=== PATIENT | male | born 2005 | race Caucasian/White ===

== ENCOUNTER 2023-07-24 11:27 | Inpatient (IN) | payer OTHER ==
[~2023-07-24 11:27] MED LIST: Iopamidol-370 76% 500 ML MDV (1 ML CHARGE) ONE
[2023-07-24] MEDS ORDERED: Ketorolac Tromethamine 30 MG/ML VIAL ONE ×2 (12:26→18:35)
[2023-07-24 12:50] LABS: #Basophils 0.1 thou/uL (0.0-0.2); #Eosinphils 0.2 thou/uL (0.0-0.7); #Monocytes 1.4 thou/uL (0.11-0.59); #Neutrophils 10.4 thou/uL (1.40-6.50); %Basophils 0.4 % (0.0-1.0); %Eosinophils 1.4 % (0.0-10.0); %Lymphocytes 11.5 % (28.0-48.0); %Monocytes 10.4 % (0.0-4.0); Hematocrit 44.3 % (42.0-52.0); Hemoglobin 14.9 g/dL (14.0-18.0); Mean Corpuscular HGB CONC 33.6 g/dL (32.0-36.0); Mean Corpuscular Hemoglobin 31.4 pg (25.0-35.0); Mean Corpuscular Volume 93.5 fl (78.0-98.0); Mean Platelet Volume 9.9 fL (7.4-10.4); Platelet Count 273 10x3/uL (130-400); RBC Distribution Width 13.2 % (11.5-14.5); Red Blood Cell (RBC) Count 4.74 mill/uL (4.00-5.20); White Blood Cell (WBC) Count 13.6 10x3/uL (4.8-10.8)
[2023-07-24 13:23] LABS: ALT (SGPT) 32 U/L (8-55); AST (SGOT) 46 U/L (5-34); Albumin 4.2 g/dL (3.5-5.0); Alkaline Phosphatase 71 U/L (50-130); Anion Gap 12 mmol/L (10-20); BUN (Urea Nitrogen) 9 mg/dL (8.9-20.6); Bilirubin, Total 0.7 mg/dL (0.2-1.2); Calc. Creatinine Clearance 0 mL/min (70-130); Calcium 9.6 mg/dL (7.8-10.44); Carbon Dioxide 26 mmol/L (22-29); Chloride 102 mmol/L (98-107); Estimated GFR 126; Globulin 2.8 g/dL (2.4-3.5); Glucose 96 mg/dL (70-105); Lipase 233 U/L (8-78); Potassium 3.8 mmol/L (3.5-5.1); Sodium 136 mmol/L (136-145)
[2023-07-24] MEDS ORDERED: Morphine 4 MG/ML VIAL ONE (13:39)
[2023-07-24] MEDS ORDERED: Ondansetron PF 4 MG/2 ML Vial ONE (13:39)
[2023-07-24] MEDS ORDERED: Acetaminophen 325 MG TAB PO PRN (18:21)
[2023-07-24] MEDS ORDERED: Ondansetron ODT 4 MG TAB PO PRN (18:21)
[2023-07-24] MEDS ORDERED: HYDROcodone/Acetaminophen 5/325 mg Tablet PO PRN (18:21)
[2023-07-24] MEDS ORDERED: Ondansetron PF 4 MG/2 ML Vial IVP PRN (18:21)
[2023-07-24] MEDS ORDERED: Sodium Chloride 0.9% 1,000 ML IV SCH ×2 (18:30→23:45)
[2023-07-24 18:32] LABS: Alcohol Less than 10.0 mg/dL (Less than 10); Triglycerides 43 mg/dL (Less than 150)
[2023-07-24] MEDS: Famotidine 20 MG TAB PO SCH (19:41)
[2023-07-24] MEDS: Morphine 2 MG/ML VIAL SLOW IVP PRN (22:01)
[2023-07-25] MEDS: Morphine 2 MG/ML VIAL SLOW IVP PRN (04:17)
[2023-07-25 06:42] LABS: #Basophils 0.1 thou/uL (0.0-0.2); #Eosinphils 0.3 thou/uL (0.0-0.7); #Monocytes 1.6 thou/uL (0.11-0.59); #Neutrophils 8.8 thou/uL (1.40-6.50); %Basophils 0.7 % (0.0-1.0); %Eosinophils 2.3 % (0.0-10.0); %Lymphocytes 15.5 % (28.0-48.0); %Monocytes 12.2 % (0.0-4.0); %Neutrophils 68.8 % (31.0-61.0); Hematocrit 40.7 % (42.0-52.0); Hemoglobin 13.5 g/dL (14.0-18.0); Mean Corpuscular HGB CONC 33.2 g/dL (32.0-36.0); Mean Corpuscular Hemoglobin 31.6 pg (25.0-35.0); Mean Corpuscular Volume 95.3 fl (78.0-98.0); Platelet Count 251 10x3/uL (130-400); RBC Distribution Width 13.2 % (11.5-14.5); Red Blood Cell (RBC) Count 4.27 mill/uL (4.00-5.20); White Blood Cell (WBC) Count 12.8 10x3/uL (4.8-10.8)
[2023-07-25 07:06] LABS: Anion Gap 14 mmol/L (10-20); BUN (Urea Nitrogen) 9 mg/dL (8.9-20.6); Calc. Creatinine Clearance 0 mL/min (70-130); Calcium 8.7 mg/dL (7.8-10.44); Carbon Dioxide 22 mmol/L (22-29); Chloride 106 mmol/L (98-107); Estimated GFR 126; Glucose 92 mg/dL (70-105); Lipase 64 U/L (8-78); Potassium 3.9 mmol/L (3.5-5.1); Sodium 138 mmol/L (136-145)
[2023-07-25 07:13] VITALS: BMI 23.7
[2023-07-25] MEDS: Famotidine 20 MG TAB PO SCH ×2 (08:42→20:24)
[2023-07-25] MEDS: Polyethylene Glycol 3350 17 GM Packet PO SCH (08:43)
[2023-07-25] MEDS ORDERED: Sodium Chloride 0.9% 1,000 ML IV SCH (10:15)
[2023-07-25] MEDS: Sodium Chloride 0.9% 1,000 ML IV SCH ×2 (10:49→17:35)
[2023-07-25] MEDS: Ketorolac Tromethamine 30 MG/ML VIAL IVP SCH ×2 (12:40→17:36)
[2023-07-26] MEDS: Ketorolac Tromethamine 30 MG/ML VIAL IVP SCH ×3 (00:42→12:35)
[2023-07-26] MEDS: Sodium Chloride 0.9% 1,000 ML IV SCH ×2 (00:43→09:08)
[2023-07-26] MEDS: Polyethylene Glycol 3350 17 GM Packet PO SCH (09:05)
[2023-07-26] MEDS: Famotidine 20 MG TAB PO SCH (09:05)
[2023-07-26 09:31] VITALS: BP 132/78; TEMP 97.6
== END 2023-07-26 17:29 | disposition home or self-care (01) | DRG 439 ==
LOC: ERS 11:27 → T4-B 19:19 → OBSVTOIN 07-25 12:58
PROVIDERS: ADMIT Internal Medicine; ATTEND Hospitalist
DX: K85.90 Acute pancreatitis without necrosis or infection, unspecified (principal); K56.7 Ileus, unspecified; R18.8 Other ascites; Z79.899 Other long term (current) drug therapy
CPT/HCPCS: 36415; 74177; 80048; 80053; 80307; 82787; 83605; 83690; 84478; 85025; J1885; J2270; J2272; J2405; J7050; Q9967